=== PATIENT | female | born 1995 | race Caucasian/White ===

== ENCOUNTER 2022-02-13 09:32 | Outpatient (CLI) | payer OTHER, SELFPAY ==
[2022-02-13 11:32] LABS: Albumin* 4.3 g/dL (3.3-5.0)
[2022-02-13 11:35] LABS: Alanine Aminotransferase* 23 U/L (4-35); Alkaline Phosphatase* 82 U/L (40-150); Aspartate Amino Transferase* 25 U/L (12-35); Bilirubin Direct* 0.3 mg/dL (0.0-0.5); Bilirubin Total* 0.4 mg/dL (0.1-1.5); Total Protein* 6.9 g/dL (6.0-8.3)
== END 2022-02-13 09:33 | disposition home or self-care (01) ==
PROVIDERS: Visit Provider Physician Assistant
DX: O26.612 Liver and biliary tract disorders in pregnancy, second trimester (principal); K80.20 Calculus of gallbladder without cholecystitis without obstruction; R74.8 Abnormal levels of other serum enzymes; Z3A.13 13 weeks gestation of pregnancy
CPT/HCPCS: 80076; 87086; 87186

== ENCOUNTER 2022-03-10 11:15 | Outpatient (CLI) | payer OTHER, SELFPAY | END 2022-03-10 11:16 | disposition home or self-care (01) | LOC: NFLDREF 11:15 | PROVIDERS: Visit Provider Obstetrics & Gynecology | DX: Z34.90 Encounter for supervision of normal pregnancy, unspecified, unspecified trimester (principal) | CPT/HCPCS: 87086 ==

== ENCOUNTER 2022-04-04 10:00 | Inpatient (IN) | payer OTHER, SELFPAY ==
[2022-04-04] VITALS (14 sets, daily range): BP systolic 105–121; BP diastolic 67–83; PULSE 70–98; RESP 16; TEMP 36.6–37.7; O2SAT 97–99; BMI 27.2; BMI 26.5
--- NOTE | 2022-04-04 09:37 | CRLHL7_ITS ---
For Patients: As a result of the Century Cures Act, medical imaging exams and procedure reports are released immediately into your electronic medical record. You may view this report before your referring provider. If you have questions, please contact your health care provider. INDICATION: No heart tones. TECHNIQUE: Ultrasound OB pelvis transabdominal. Real-time goyal-scale imaging of the fetus was performed. COMPARISON: None. FINDINGS: No heart tones. Hydrops fetalis with generalized body edema possible cystic hygroma. Fetus has a cephalic orientation. Placenta position is anterior. The following biometric measurements were obtained: Biparietal diameter: 3.1 cm, 15 week 5 day, less than 3rd percentile. Head circumference: 11.6 cm, 15 week 5 day, less than 3rd percentile. Abdominal circumference: 10.5 cm, 16 weeks 3 day, less than 3rd percentile. Femur length: 2.0 cm, 15 week 6 day, less than 3rd percentile. The composite ultrasound gestational age is calculated at 16 week 0 day with an estimated sonographic due date of 09/19/2022. The weight is estimated at 145 grams, the less than 3rd percentile. IMPRESSION.: 1. demise with no detectable heart tones. 2. Hydrops fetalis. Dr. Solorzano was given preliminary report prior to dictation. Dictated by Stefan Dunne MD @ 04/04/2022 10:48:37 AM (Electronically Signed)
--- NOTE | 2022-04-04 10:10 | SUR.PREOP ---
OB RN Lesli in room for Heart Tones. Unable to assess FHR. Dr. Courtney notified and at bedside for bedside ultrasound. No Heart Tones per Dr. Courtney. Ultrasound called for confirmation ultrasound. Patient moved to OB Room 206. aware and Lap Mony procedure cancelled.
--- NOTE | 2022-04-04 11:11 | P.OBHP_ITS ---
OB - H&P: HPI Labor/Induction History of Present Illness Time Seen by Provider: 11:15 Date Seen: 04/04/22 Chief Complaint: HPI: Kandi is a 27 year old 1 para 0 at 20 and 0/7 weeks gestation by LMP of 11/14/2021 with an SIMONA of 08/21/2022 which was consistent with her first- trimester ultrasound performed at 8 weeks gestation. She presented to the surgery center this morning for a scheduled laparoscopic cholecystectomy for cholelithiasis in . cardiac activity could not be auscultated on Doppler so a bedside ultrasound was performed which showed an intrauterine demise. The patient's surgery was canceled and she was transferred to the center. An official ultrasound was performed with findings stated below: Measuring 16 weeks. I reviewed options for management of 2nd trimester demise with the patient and her spouse, Wilver: Induction of labor versus dilation and evacuation. After discussing options with the patient and her spouse they decided that they would prefer induction of labor. Kandi states she thinks that she felt a little bit of movement but nothing regular. She denies contractions, vaginal bleeding, vaginal discharge, leaking fluid, fever, nausea/vomiting. She has had abdominal pain associated with gallstones. OBSTETRICAL HISTORY: Total number of pregnancies: 0. Contraception being uses during time of conception: None. Last menstrual period normal: Yes. Usual length of cycle: 31 day. Treatment for infertility: No. LMP: 11/14/2021. Last pap: April 2021, records requested. History of abnormal pap: No. History of STI or PID: Denies. History of MRSA: Denies. MEDICAL HISTORY: Cholelithiasis Fatty liver Asthma IMMUNIZATIONS: Up-to-date. History of chicken pox: Yes. SURGICAL HISTORY: Appendectomy 2010 History of blood transfusion: No SOCIAL HISTORY: Occupation: Unemployed. Marital status: . Sabianist/cultural needs: no. Chemical or radiation exposure: no. Pre- tobacco use: no. Pre- alcohol use: no. Current tobacco use: no. Current alcohol use: no. Recreational drug use: no. . Blood transfusion acceptable in an emergency: yes . FAMILY AND GENETIC HISTORY: Family history of neurofibromatosis (sister of father of the baby) Family history of Stickler syndrome (patient's brother) No history recurrent loss or defects PSYCHOSOCIAL HISTORY: History of depression or currently depresses: no. Current physical, emotional, or sexual mistreatment: no. Problems that will make it hard to make it to appointments: no. REVIEW OF SYSTEMS: Positives noted above. Remainder of 10 point review of system is negative Chief complaint: Maternity : 1 Para: 0 Narrative: HPI: Kandi Barnett is a 27 year old female OBSTETRICAL HISTORY: Total number of pregnancies: 0. Meds Home Medications and Allergies Home Medications Medication Instructions Recorded Confirmed Type albuterol sulfate 90 mcg/actuation inhalation PRN 02/13/22 04/02/22 History aerosol inhaler docosahexaenoic acid 200 mg mg PO 02/13/22 04/02/22 History capsule ( DHA) aspirin 81 mg tablet,delayed 81 mg PO QDAY 02/24/22 04/04/22 History release Allergies Allergy/AdvReac Type Severity Reaction Status Date / Time No Known Allergies Allergy Unverified 04/02/22 13:09 OB - H&P: Exam Physical Exam: Vital signs: Temp Pulse Resp BP Pulse Ox O2 Del Method 97.8 F 83 16 113/68 99 04/04/22 09:28 04/04/22 09:28 04/04/22 09:28 04/04/22 09:28 04/04/22 09:28 04/04/22 09:28 Narrative: GENERAL APPEARANCE: Pleasant, , well-groomed woman in no acute dist ress. VITAL SIGNS: as noted in nursing notes THYROID: no masses, nodularity, tenderness or enlargement. LUNGS: Clear to auscultation bilaterally without wheezes, rales or rhonchi. HEART: Regular rate and rhythm with normal S1 and S2. No gallop, rub or murmur. LYMPHATICS: No anterior/posterior cervical, supraclavicular adenopathy. ABDOMEN: Soft, nontender, nondistended, with normal bowels sounds throughout. No hepto-splenomegaly, mass, hernia, CVA or flank tenderness to palpation. EXTREMITIES: No cyanosis, clubbing, or edema. No varicosities. NEUROLOGIC: Normal gait and balance. Normal deep tendon reflexes at bilateral patella 2+/2, equal without clonus. PSYCHIATRIC: alert and oriented x3. Normal speech pattern, eye contact and affect. SKIN: Warm, dry, and well perfused. Good turgor. No lesions, nodules or rashes. OB - Problem Based A/P Additional Plan (1) demise before 22 weeks with retention of fetus: Problem details: 20weeks by dates, 16 weeks by USN Status: Acute Plan 1. Admit to the center. 2. Labor induction with Cytotec 200 mg vaginally every 4 hours. 3. Analgesia for pain as desired she. 4. Multiple laboratory tests ordered due to 2nd trimester demise: Torch titers, listeria, autoimmune disorder testing, hypercoagulability evaluation, glucose, KB, TSH and free T4. Cytogenetics of the placenta will be ordered after delivery. Chromosome studies in the patient were ordered. 5. Iris notified for patient's support and resources for patients who have had loss. 6. Rh negative, will need RhoGAM after delivery
[2022-04-04] MEDS: ACETAMINOPHEN 500 MG TABLET 1000 MG PO ×3 (11:38→23:15)
[2022-04-04] MEDS: miSOPROStoL 200 MCG TABLET VAGINAL ×4 (11:39→23:41)
[2022-04-04] MEDS: LOPERAMIDE HCL 2 MG CAPSULE 4 MG PO (11:39)
[2022-04-04 14:59] LABS: Basophils Percent Auto 0.2 % (0.0-3.0); Eosinophils Percent Auto 0.3 % (0.0-7.0); Hematocrit 38.6 % (33.0-51.0); Hemoglobin* 13.3 gm/dL (12.0-16.0); Immature Granulocytes Abs Auto 0.16 K/uL (0.00-0.30); Lymphocytes Percent Auto 14.5 % (20-44); Mean Corpuscular HGB Conc 35 gm/dL (32-36); Mean Corpuscular Hemoglobin 30 pg (26-34); Mean Corpuscular Volume 86 fL (80-100); Monocytes Percent Auto 3.9 % (0.0-11.0); Neutrophils Percent Auto 79.9 % (42.0-72.0); Platelet Count* 301 K/uL (140-440); RDW Coefficient of Variation % 12.8 % (11.5-15.5); Red Blood Count 4.47 m/uL (4.00-5.20); White Blood Count* 13.07 K/uL (4.50-11.00)
[2022-04-04 15:00] LABS: Amphetamine Screen Urine Negative (Negative); Benzodiazepines Screen Urine Negative (Negative); Cannabinoid Screen Urine Negative (Negative); Cocaine Screen Urine Negative (Negative); Methadone Screen Urine Negative (Negative); Methamphetamines Screen Urine Negative (Negative); Opiate Screen Urine Negative (Negative); Phencyclidine Screen Urine Negative (Negative); Tricyclic Antidepressant Urine Negative (Negative)
[2022-04-04 15:01] LABS: Barbiturate Screen Urine Negative (Negative); Oxycodone Screen Urine Negative (Negative)
[2022-04-04 15:12] LABS: Slide Review Reflex No
[2022-04-04 15:13] LABS: Glucose* 133 mg/dL (60-115)
[2022-04-04 15:31] LABS: Free T4 Free Thyroxine* 1.02 ng/dL (0.70-1.85)
[2022-04-04 15:51] LABS: INR 0.99 (0.91-1.10); Prothrombin Time 13.5 Seconds
[2022-04-04 15:52] LABS: Fibrinogen* 492 mg/dL (200-450); Partial Thromboplastin Time* 30 Seconds (23-33)
[2022-04-04] MEDS: LOPERAMIDE HCL 2 MG CAPSULE PO (19:46)
[2022-04-05] VITALS (26 sets, daily range): BP systolic 107–125; BP diastolic 68–78; PULSE 72–113; RESP 16–18; TEMP 36.8–37.6
[2022-04-05] MEDS: miSOPROStoL 200 MCG TABLET VAGINAL (03:44)
[2022-04-05] MEDS: ACETAMINOPHEN 500 MG TABLET 1000 MG PO ×2 (05:21→12:39)
[2022-04-05] MEDS: SODIUM CHLORIDE 0.9 % (FLUSH) 10 ML SYRINGE IVF ×3 (09:24→11:30)
[2022-04-05] MEDS: miSOPROStoL 200 MCG TABLET 400 MCG VAGINAL (09:24)
[2022-04-05] MEDS: LOPERAMIDE HCL 2 MG CAPSULE PO (09:34)
--- NOTE | 2022-04-05 09:48 | PM.OBPNL ---
Pain Control Date Seen: 04/05/22 Comments: The patient feels generally well. She has had some mild low abdominal cramping that seems to come and go. She denies any vaginal bleeding. She is teary-eyed this morning. Her parents and in-laws will be visiting to provide support sometime this morning. Contractions Monitor mode: None Pelvic Exam Comments: Exam deferred. Assessment and Plan Assessment: induction ongoing Comments: Will increase the dosage of misoprostol to 400 mcg PV every 4 hours. The patient and I discussed the plan. We reviewed the possibility that surgical intervention could be necessary for retained placenta or hemorrhage, but we will try to avoid surgery unless necessary. She can have medications for pain control as needed.
[2022-04-05] MEDS: fentaNYL 100 MCG/2 ML inj IVP ×2 (10:52→11:30)
[2022-04-05] MEDS: METHYLERGONOVINE MALEATE 0.2 MG/ML INJ IM (11:42)
[2022-04-05] MEDS: ONDANSETRON 2 MG/ML inj 4 MG IV (12:16)
[2022-04-05] MEDS: miSOPROStoL 800 MCG/4 TABLET PR (12:26)
--- NOTE | 2022-04-05 13:23 | P.OBPRC_ITS ---
Procedure Delivery date: 04/05/22 Procedure Done: Global Procedure Details: Procedures Operation Date: 04/04/22 10:30 <No data on this case meets the specified criteria> Events: Other ( demise diagnosed at 20 2/7 weeks, size by ultrasound = 16 0/7 weeks, with hydrops) Intrapartal Events: Labor Induction Induction method: per misoprostol protocol (Initially 200 mcg orally Q 4 hours, increased to 400 mcg on 04/05/2022) Delivery monitor: none Route of delivery: Laceration description: None Estimated blood loss (mL): 50 Anesthesia type: Fentanyl Disposition: floor Narrative: The patient is a 27 year-old G 1 P 0 admitted on 9 to [facility] at 20 Weeks, 2 Days gestation for labor induction following diagnosis of intrauterine demise.? size by ultrasound at the time the demise was diagnosed was 16 weeks. Fetus was noted to be hydropic. Cervical exam on admission was long and closed with membranes intact.? Induction was initiated via misoprostol per protocol, 200 mcg q.4 hours. After 5 doses, the dosage was increased to 400 mcg. ? Labor Analgesia:? Fentanyl ? Labor onset:? 1045 on 04/05/2022 ? The patient had a small gush of fluid from the vagina while using the bathroom at 11:22 a.m.. ? At 1137 a nonviable viable delivered spontaneously. Methergine 0.2 mg was administered intramuscularly just after the delivery. Misoprostol 800 mcg was administered rectally at about 12 30. ? Placenta delivered spontaneously and complete at 1300. ? Mother was stable after delivery. ? Blood loss: [50] mL. Blood loss measurement type: [QBL] ? Sponge and needles counts are correct. Infant Infant Gender: Ambiguous
[2022-04-07 00:05] LABS: Toxoplasma gondii Ab, IgG < 3.0 IU/mL; Toxoplasma gondii Ab, IgM < 3.0 AU/mL (<=7.9)
[2022-04-07 00:11] LABS: CMV Antibody IgG < 0.20 U/mL; CMV Antibody IgM < 8.0 AU/mL (<=29.9)
[2022-04-07 01:06] LABS: B2Glycoprotein 1, IgG Antibody < 10 SGU (<=20); B2Glycoprotein 1, IgM Antibody < 10 SMU (<=20)
[2022-04-07 01:14] LABS: Rapid Plasma Reagin (RPR) Non Reactive (Non Reactive)
[2022-04-07 01:16] LABS: Cardiolipin Antibody IgA < 10 APL (<=11); Cardiolipin Antibody IgG < 10 GPL (<=14); Cardiolipin Antibody IgM < 10 MPL (<=12)
[2022-04-07 22:03] LABS: Parvovirus B19 Antibody IgG 0.36 IV (<=0.90); Parvovirus B19 Antibody IgM 0.17 IV (<=0.90)
[2022-04-11 12:37] LABS: FACV Specimen Whole Blood; Factor V Leiden (F5) Mutation Negative
== END 2022-04-05 19:30 | disposition home or self-care (01) | DRG 807 ==
LOC: OB 10:07
PROVIDERS: Obstetrics & Gynecology; Admitting Provider Obstetrics & Gynecology; Visit Provider Obstetrics & Gynecology
DX: O36.4XX0 Maternal care for intrauterine death, not applicable or unspecified (principal); Z37.1 Single stillbirth; Z3A.20 20 weeks gestation of pregnancy
CPT/HCPCS: 36415; 76815; 80306; 81241; 82947; 84439; 84443; 85025; 85384; 85460; 85461; 85610; 85613; 85730; 86146; 86147; 86317; 86592; 86644; 86645; 86747; 86778; 86850; 86900; 86901; 87070; 87186; 88233; 88262; 88305; A9270; J1200; J2210; J2405; J2791; J3010

== ENCOUNTER 2022-05-13 06:03 | Day surgery (SDC) | payer OTHER, SELFPAY ==
[2022-05-13] VITALS (16 sets, daily range): BP systolic 109–122; BP diastolic 76–90; PULSE 68–110; RESP 16; TEMP 36.2–37.1; O2SAT 96–98; BMI 27.7
[2022-05-13 06:30] LABS: Ur HCG Qualitative* Negative (Negative)
[2022-05-13] MEDS: SODIUM CHLORIDE 0.9 % (FLUSH) 10 ML SYRINGE IVF (06:35)
[2022-05-13] MEDS: LACTATED RINGERS 1000 ML 1,000 ML 100 ML IV ×2 (06:35→09:54)
[2022-05-13] MEDS: CEFAZOLIN 1 GM inj IVP (07:32)
[2022-05-13] MEDS: BUPIVACAINE 0.5% 30 ML INJECTION (08:58)
--- NOTE | 2022-05-13 09:11 | PM.GSPRC ---
Operative Note Date of procedure: 05/13/22 Type of Procedure: Laparoscopic cholecystectomy Procedure Description: After discussing the risks and benefits of the procedure, the patient signed informed consent.? The operative site was marked and the patient was brought to the operating room and placed on the operating table in supine position.? Care was taken to pad the patient's pressure points.?? The patient was then intubated by anesthesia.?? The operative site was then prepped and draped in the usual sterile fashion.? A time-out was then performed. Entrance to the abdomen was gained via a 5 mm Visiport in the left upper quadrant. The abdomen was insufflated and briefly surveyed for signs of injury. There was none. 11 mm umbilical port was placed as well as 2 working ports along the right costal margin. Patient was then placed in reverse Trendelenburg position with the right side up. The gallbladder fundus was grasped and retracted cephalad. The infundibulum was grasped. A combination of hook cautery and blunt dissection was used to carefully dissect out the cystic duct and artery until they could clearly be seen entering the gallbladder without any intervening structures. The gallbladder was dissected off the cystic plate to achieve the critical view. Once this was achieved the cystic duct and artery were each clipped with 2 clips proximally and 1 clip distally and transected with the scissors. The gallbladder was then taken off of the liver bed. And removed from the abdomen using an Endo-Catch bag. The gallbladder bed was surveyed for hemostasis. The ports were then removed under direct vision. The umbilical port fascia was closed with 0 Vicryl. The skin was closed with absorbable subcuticular suture. Instrument sponge and needle counts were correct at the end of the case. The patient was then woken and transferred to the PACU in stable condition. ? Sterile dressings were then applied. ? The patient was then woken and transported to the recovery area in stable condition. ? The patient tolerated the procedure well. Findings: Cholelithiasis Anesthesia: GETA Surgeon: Irene Solorzano MD Estimated blood loss (mL): 5 Disposition: same day
--- NOTE | 2022-05-13 09:19 | W.ANESCHARGE ---
Anesthesia Charges Start Date/Time Anesthesia Start Date: 05/13/22 Anesthesia Start Time: 07:29 Stop Date/Time Anesthesia Stop Date: 05/13/22 Anesthesia Stop Time: 09:22 Summary Emergency: No
--- NOTE | 2022-05-13 10:00 | W.ANESCHARGE ---
Anesthesia Charges Start Date/Time Anesthesia Start Date: 05/13/22 Anesthesia Start Time: 07:29 Stop Date/Time Anesthesia Stop Date: 05/13/22 Anesthesia Stop Time: 09:22 Summary Emergency: No
[2022-05-13] MEDS: OXYCODONE 5 MG TABLET PO (10:42)
[2022-05-13] MEDS: ONDANSETRON 2 MG/ML inj 4 MG IVP (11:08)
== END 2022-05-13 12:21 | disposition home or self-care (01) ==
PROVIDERS: Visit Provider Surgery
PROC: 0FT44ZZ Resection of Gallbladder, Percutaneous Endoscopic Approach (ICD-10-PCS; CPT 47562; principal; 2022-05-13 07:30)
DX: K80.10 Calculus of gallbladder with chronic cholecystitis without obstruction (principal)
CPT/HCPCS: 47562; 00790; 81025; 88304; A9270; J0330; J0690; J1100; J1885; J2250; J2370; J2405; J2710; J3010; J3490; J7120

== ENCOUNTER 2022-08-19 14:55 | Outpatient (CLI) | payer OTHER, SELFPAY ==
--- NOTE | 2022-08-19 15:00 | CRLHL7_ITS ---
For Patients: As a result of the Cures Act, medical imaging exams and procedure reports are released immediately into your electronic medical record. You may view this report before your referring provider. If you have questions, please contact your health care provider. INDICATION: Evaluate size and dates TECHNIQUE: Ultrasound OB pelvis transvaginal. Real time goyal scale imaging of the pelvis was performed. COMPARISON: None FINDINGS: Sonographic imaging demonstrates a single living intrauterine gestation. The embryo demonstrates a regular cardiac rate measuring a 79 beats per minute. The embryo`s crown rump length measurement of 2.2 cm corresponds to a gestational age of 8 weeks 6 days with a sonographic due date of . There is a normal appearing yolk sac. There are no gross abnormalities noted within the embryo at this early state of development. The placenta has not yet developed. The gestational sac has a normal appearance. 0.4 centimeter x 1.0 centimeter x 0.3 centimeter subchorionic hemorrhage. The amount of fluid within the sac appears appropriate for gestational age. The cervix is closed. The myometrium appears normal. The ovaries are of normal size. 1.7 centimeter complex left ovarian cyst there are no suspicious fluid collections noted in the cul-de-sac. IMPRESSION: Viable intrauterine . Gestational age calculated at 8 weeks 6 days with a sonographic due date of . Exam is consistent with dates. 0.4 centimeter x 1.0 centimeter x 0.3 centimeter subchorionic hemorrhage. 1.7 centimeter complex left ovarian cyst. Dictated by Tyrone Nevarez MD @ 08/19/2022 8:27:48 PM (Electronically Signed)
== END 2022-08-19 14:56 | disposition home or self-care (01) ==
LOC: US 14:55
PROVIDERS: Visit Provider Registered Nurse
DX: Z34.91 Encounter for supervision of normal pregnancy, unspecified, first trimester (principal); Z3A.09 9 weeks gestation of pregnancy
CPT/HCPCS: 76817

== ENCOUNTER 2022-08-19 16:35 | Outpatient (CLI) | payer OTHER, SELFPAY ==
[2022-08-19 21:00] LABS: Hepatitis B Surface Antigen* Negative (Negative)
[2022-08-19 21:12] LABS: HIV 1/2/P24 Combo Screen* Negative (Negative)
[2022-08-19 21:18] LABS: Hepatitis C Virus Antibody* Negative (Negative)
[2022-08-19 22:16] LABS: Chlamydia DNA Amplified* NOT DETECTED (No Detected); GC DNA Amplified* NOT DETECTED (No Detected)
[2022-08-21 23:05] LABS: Varicella-Zoster Virus Ab, IgG 691.4 IV
[2022-08-21 23:10] LABS: Rubella Antibody IgG 17.1 IU/mL
[2022-08-22 01:42] LABS: Rapid Plasma Reagin (RPR) Non Reactive (Non Reactive)
== END 2022-08-19 16:36 | disposition home or self-care (01) ==
PROVIDERS: Visit Provider Registered Nurse
DX: Z34.91 Encounter for supervision of normal pregnancy, unspecified, first trimester (principal); Z3A.09 9 weeks gestation of pregnancy
CPT/HCPCS: 86592; 86703; 86762; 86787; 86803; 86850; 86900; 86901; 87086; 87340; 87491; 87591

== ENCOUNTER 2022-11-04 14:58 | Outpatient (CLI) | payer OTHER, SELFPAY ==
--- NOTE | 2022-11-04 15:00 | CRLHL7_ITS ---
For Patients: As a result of the Century Cures Act, medical imaging exams and procedure reports are released immediately into your electronic medical record. You may view this report before your referring provider. If you have questions, please contact your health care provider. INDICATION: Evaluate anatomy. COMPARISON: 08/19/2022 TECHNIQUE: Real time goyal scale imaging of the fetus was performed as well as color Doppler analysis of the umbilical vessels. FINDINGS: Sonographic imaging demonstrates a single living intrauterine gestation. Fetus demonstrates a regular cardiac rate of 159 beats per minute. Fetus has a variable position. The placenta lies posteriorly without evidence of placenta previa. The edge of the placenta is located 5.4 cm from the internal cervical os. Amniotic fluid volume appears normal. Single deepest vertical pocket: 4.5 cm. The cervix is closed and measures 3.8 cm in length. The composite ultrasound gestational age is calculated at 20 weeks 0 days with an estimated sonographic due date of 03/24/2023. The estimated weight is 315 grams which lies at the 28th %. The following biometric measurements were obtained: Biparietal diameter: 4.4 cm/19 weeks 3 days 20th% Head circumference: 16.9 cm/19 weeks 4 days 16th% Abdominal circumference: 14.8 cm/20 weeks 1 day 42nd% Femur length: 3.1 cm/19 weeks 4 days 25th% The HC/AC ratio measures: 1.14 range (1.08-1.25) On anatomic survey, there is a normal appearance of the cerebral ventricles, cavum septi pellucidi, cisterna magna and cerebellum. The nose, lips, and facial profile appear normal. The cervical, thoracic and lumbar spine are well visualized and appear normal. There is a normal four-chamber heart view and the left and right ventricular outflow tracts appear normal. The diaphragm and stomach appear normal. The kidneys and bladder also appear normal. There is a normal three-vessel cord and cord insertion site. The four extremities appear normal. IMPRESSION: Normal OB ultrasound exam with concordance of clinical and sonographic dating. No intrinsic abnormalities noted on anatomic survey. Dictated by Tyrone Calderon MD @ 11/05/2022 9:41:12 AM (Electronically Signed)
== END 2022-11-04 14:59 | disposition home or self-care (01) ==
LOC: US 14:58
PROVIDERS: Visit Provider Obstetrics & Gynecology
DX: Z34.92 Encounter for supervision of normal pregnancy, unspecified, second trimester (principal); Z3A.20 20 weeks gestation of pregnancy
CPT/HCPCS: 76805

== ENCOUNTER 2023-01-13 15:53 | Outpatient (CLI) | payer OTHER, SELFPAY ==
--- NOTE | 2023-01-13 16:00 | CRLHL7_ITS ---
For Patients: As a result of the Century Cures Act, medical imaging exams and procedure reports are released immediately into your electronic medical record. You may view this report before your referring provider. If you have questions, please contact your health care provider. INDICATION: + COVID in early COMPARISON: 11/04/2022 TECHNIQUE: Real time goyal scale imaging of the fetus was performed. FINDINGS: Sonographic imaging demonstrates a single living intrauterine gestation. Fetus demonstrates a regular cardiac rate of 165 beats per minute. Fetus has a vertex position. The placenta lies posterior. Amniotic fluid volume appears normal and there is a single deepest vertical pocket: 5.6 cm. The estimated weight is 1687gm which lies at the 69th %. On the prior OB ultrasound exam dated 11/04/2022 the estimated weight was at the 28th%. The HC/AC ratio measures 1.04 range (0.96-1.17). BPD 37th percentile. HC 54th percentile. AC 86th percentile. FL 32nd percentile. IMPRESSION: Sonographic gestational age 30 weeks 6 days and sonographic due date 03/18/2023. Sonographic age 5 days ahead of the clinical age. Estimated weight 69th percentile. Abdominal circumference 86th percentile. Dictated by Tyrone Calderon MD @ 01/14/2023 9:14:34 AM (Electronically Signed)
== END 2023-01-13 15:54 | disposition home or self-care (01) ==
LOC: US 15:54
PROVIDERS: Visit Provider Registered Nurse
DX: O98.513 Other viral diseases complicating pregnancy, third trimester (principal); U07.1 COVID-19; Z3A.30 30 weeks gestation of pregnancy
CPT/HCPCS: 76816

== ENCOUNTER 2023-01-27 17:36 | Outpatient (CLI) | payer OTHER, SELFPAY | END 2023-01-27 17:37 | disposition home or self-care (01) | LOC: NFLDREF 17:37 | PROVIDERS: Visit Provider Registered Nurse | DX: Z34.93 Encounter for supervision of normal pregnancy, unspecified, third trimester (principal); Z3A.32 32 weeks gestation of pregnancy | CPT/HCPCS: 87086 ==

== ENCOUNTER 2023-02-24 13:15 | Outpatient (CLI) | payer OTHER, SELFPAY | END 2023-02-24 13:16 | disposition home or self-care (01) | LOC: NFLDREF 02-26 07:33 | PROVIDERS: Visit Provider Obstetrics & Gynecology | DX: Z34.93 Encounter for supervision of normal pregnancy, unspecified, third trimester (principal); Z3A.36 36 weeks gestation of pregnancy | CPT/HCPCS: 87081; 87653 ==

== ENCOUNTER 2023-03-22 15:40 | Inpatient (IN) | payer OTHER, SELFPAY ==
[2023-03-22] VITALS (63 sets, daily range): BP systolic 84–138; BP diastolic 50–89; PULSE 71–118; RESP 16; TEMP 37–37.2; O2SAT 98–100; BMI 34.2
--- NOTE | 2023-03-22 15:50 | P.OBHP_ITS ---
OB - H&P: HPI Labor/Induction History of Present Illness Time Seen by Provider: 15:50 Date Seen: 03/22/23 Chief Complaint: This is a 28-year-old female 2 para 0010 who presents at 39 and 6 7th weeks by last menstrual. A 9 week ultrasound complaint of uterine contractions which started at 2:00 a.m. this morning and then every 2 minutes. Patient denies any rupture of membranes. No bloody show. Positive movement. Patient states she has had an unremarkable course. She had an abnormal 1 hour GTT but had a normal 3 hour GTT. GBS is negative Past medical history: Mild intermittent asthma. Past surgical history: Appendectomy and cho lecystectomy. Medicines: Celexa 20 mg. Allergies: None. Social history: No smoke rare ETOH and no drug use. 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 Chief complaint: PAT Appointment : 2 Para: 10 Narrative: Kandi Barnett is a 28 year old female Specific Issues/Plans 010 : Wilver Sands. H/o stillbirth at 20 weeks (measuring 16 weeks) on 04-03-22. Monosomy X/Fisher's syndrome and cystic hygroma. MaterniT 21: negative (sex linked aneuploidy not done, we are contacting the [facility] to see if it can be added) -I talked with the piper helper from the [facility] and she was able to give me a verbal report, no additional findings for sex linked aneuploidy. This will not be reflected in her report. Patient is comfortable with this information. I talked to Kaila at [phone] Encouraged patient to schedule additional office visits as she desires 2. Anxiety. Citalopram 10mg. Doing relatively well at first OB visit. Feeling cautious about the . Increased anxiety. On 09/16/2022 increased citalopram to 20 mg 3. SHREE: 0.4 x 1.0 x 0.3 cm. 1.7 centimeter complex left ovarian cyst. 4. Family history of neurofibromatosis and stickler syndrome. Considering genetics referral. 5. History of covid infection in early . Growth u/s at 32 weeks: Performed 30 weeks: EFW: 69% periods BPD 37%, HC 54%, AC 86%, FL 32%. Vertex position. S DP 5.6 cm. 6. Mild intermittent BA -Albuterol inhaler PRN O NEGATIVE: rhogam: 12-30-22 Flu: 08/19/2022 COVID: Completed, not boosted. Recommended. TDAP: 01/13/23 Meds Home Medications and Allergies Home Medications Medication Instructions Recorded Confirmed Type albuterol sulfate 90 mcg/actuation 1 inh inhalation Q6H PRN 05/12/22 03/22/23 History aerosol inhaler prenat.vits,morales,[id number] 1 tab PO QDAY 08/19/22 03/22/23 History Allergies Allergy/AdvReac Type Severity Reaction Status Date / Time cat dander Allergy Mild itching, Verified 03/18/23 08:53 watery eyes dog dander Allergy Mild itching, Verified 03/18/23 08:53 watery eyes seasonal Allergy Mild SOB, runny Uncoded 03/18/23 08:53 nose OB - H&P: Exam Physical Exam: Vital signs: Temp Pulse Resp BP Pulse Ox 99 F 87 16 132/89 98 03/22/23 15:36 03/22/23 15:35 03/22/23 15:36 03/22/23 15:35 03/22/23 11:39 Narrative: HEENT: Unremarkable. Lungs: Clear Heart: Positive S1-S2 no S3 or S4 Abdomen: Positive bowel sounds. Soft nontender. Lower extremities: No edema. Negative Homans sign. Sterile vaginal exam by the nurse. 5 cm. heart rate. 140. Positive accelerations. No decelerations. Good variability. Uterine contractions every 2-3 minutes. Category 1. OB - Problem Based A/P Additional Plan (1) : Status: Acute Plan Assessment and plan: Term intrauterine . Labor. Patient will be admitted for delivery.
[2023-03-22] MEDS: LACTATED RINGERS 1000 ML 1,000 ML 999 ML IV ×2 (18:37→19:38)
[2023-03-22] MEDS: LIDOCAINE 2% (PF) 5 ML VIAL EPIDURAL (19:31)
[2023-03-22] MEDS: ROPIVACAINE 0.2% 100 ml 100 ML 12 MG EPIDURAL (19:35)
--- NOTE | 2023-03-22 19:45 | P.ANBPRC_ITS ---
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 Social History (Updated 02/24/22 @ 16:17 by Hui Gramajo MD) Narrative: The patient is currently with her 1st child. She does not work outside the home. She does not smoke or use alcohol. What is your current living situation?: I presently have a place to live Problems where you live: no known problems In the past 12 months, utilities in danger of being shut off: no In the past 12 mos, have been you worried that your food would run out before you had money to buy more?: never true In the past 12 mos, the food you bought just didn't last and you didn't have money to buy more?: never true Smoking Status: Never smoker Do you use any of these nicotine containing products: None How often do you have a drink containing alcohol: never How often do you have six or more drinks on one occasion: Never AUDIT-C Alcohol total score: 0 Non-prescribed substance use: denies use Caffeine: Yes (coffee 1per day) How often does anyone, including family, friends and others, physically hurt you : never How often does anyone, including family, friends and others, insult or talk down to you: never How often does anyone, including family, friends and others, threaten you with harm: never How often does anyone, including family, friends and others, scream or curse at you: never Little interest or pleasure in doing things: not at all Feeling down, depressed, or hopeless: not at all Are you using contraception or practicing any form of control: No Meds Home Medications and Allergies Home Medications Medication Instructions Recorded Confirmed Type albuterol sulfate 90 mcg/actuation 1 inh inhalation Q6H PRN 05/12/22 03/22/23 History aerosol inhaler prenat.vits,morales,[id number] 1 tab PO QDAY 08/19/22 03/22/23 History Allergies Allergy/AdvReac Type Severity Reaction Status Date / Time cat dander Allergy Mild itching, Verified 03/18/23 08:53 watery eyes dog dander Allergy Mild itching, Verified 03/18/23 08:53 watery eyes seasonal Allergy Mild SOB, runny Uncoded 03/18/23 08:53 nose Results Vital Signs Vital Signs: Last Vital Signs Temp 99 F 03/22/23 15:36 Pulse 107 H 03/22/23 19:44 Resp 16 03/22/23 15:36 BP 120/71 03/22/23 19:44 Pulse Ox 99 03/22/23 19:40 Weight: 85.003 kg Height: 157.48 cm Anesthesia Procedures Epidural Insertion Patient Location: OB Start Time: 18:50 Stop Time: 19:50 Start Date: 03/22/23 Stop Date: 03/22/23 Reason for Block: procedure for pain Patient Position: sitting Performed By: Valerie Reich Preanesthetic Checklist: IV checked, risks and benefits discussed, monitors and equipment checked, pre-op evaluation, timeout performed and anesthesia consent Prep: chlorhexidine gluconate Monitoring: blood pressure monitoring, continuous pulse oximetry and heart rate Approach: midline Vertebral Space: lumbar (1-5) Epidural Technique: LEILANI saline Needle Type: Tuohy needle Injection Technique: continuous catheter (continuous catheter) Needle gauge: 17 Needle Length (cm): 10 cm Needle Insertion Depth (cm): 6 Catheter Gauge: 19 Catheter Type: multi-orifice Catheter at skin depth (cm): 15 Test Dose Result: negative and lidocaine 1.5% with epinephrine 1 to 200,000
[2023-03-22] MEDS: PHENYLEPHRINE 100 MCG/ML SYRINGE IVP ×2 (20:50→20:54)
[2023-03-22] MEDS: LACTATED RINGERS 1000 ML 1,000 ML 525 ML IV (21:03)
[2023-03-22] MEDS: LACTATED RINGERS 1000 ML 1,000 ML 925 ML IV (22:11)
[2023-03-22] MEDS: LACTATED RINGERS 1000 ML 1,000 ML 125 ML IV (23:16)
[2023-03-22] MEDS: OXYTOCIN 30 unit/500 ML in NS 30 UNIT/500 ML BAG IVPB (23:38)
[2023-03-23] VITALS (30 sets, daily range): BP systolic 93–135; BP diastolic 55–80; PULSE 88–130; RESP 16–18; TEMP 36.7–37.6; O2SAT 96–97
[2023-03-23] MEDS: ROPIVACAINE 0.2% 100 ml 100 ML 12 MG EPIDURAL (02:38)
[2023-03-23] MEDS: ONDANSETRON 2 MG/ML inj 4 MG IV (02:49)
[2023-03-23] MEDS: CEFAZOLIN 2 GM INJ IVP (04:34)
--- NOTE | 2023-03-23 04:36 | W.PM.OBVAGDE ---
OB Procedure Vag Delivery Mother Details Mother Details: The patient is a 28 year-old, 2, Para 1, admitted on 03/22/23 at 38 6/7 weeks gestation, in labor for delivery. Patient progressed well, epidural in place, afterwards contractions started to space out. AROM with meconium stained amniotic fluid and oxytocin started after discussion of labor progression with patient and she agreed. : 2 Para: 1 Weeks Gestation: 40 Admission Date: 03/22/23 Additional Details Amniotic Membrane Status: AROM Amniotic Membrane Rupture Date: 03/22/23 Amniotic Membrane Rupture Time: 22:21 Amniotic Membrane Fluid Description: Meconium Stained Analgesia/Anesthesia Type: Epidural Waterbirth: No Pitcoin: Yes Intrapartal Events: Labor Augmentation and Mod/Heavy Meconium Fluid Delivery augmentation: rupture of membranes and pitocin Labor Onset: 09:00 (03/22/23) Complete: 02:16 Pushin:55 Heart: heart tones during second stage were category 2. Deep variables while . Delivery Details Delivery Date: 03/23/23 Delivery Time: 03:58 Route of delivery: Infant Gender: Female Infant Viability: Alive; Heart Rate Present Position at Delivery: OA Delivery Details: Delivered over intact perineum via spontaneous vaginal delivery. was placed on maternal abdomen.? Cord was clamped and cut after a 30-60 second delay. Nose and mouth were bulb suctioned.? weight 7 pounds 13 ounces. 1 Minute Interval Total Score: 6 5 Minute Interval Total Score: 8 Additional Details Shoulder Dystocia: No Placenta Delivery Time: 04:01 Placental Delivery Description: Spontaneous Delivery repair: Vicryl Procedure Done: Global Blood Loss: 500 Laceration: Perineal - 3rd Degree (3b) Episiotomy Description: None Blood Loss Measurement Type: QBL (Blood loss associated to bleeding perineal laceration, also large amount of amniotic fluid and urine after delivery, suspect overestimation,will monitor closely.) Bakri Used: No Sponge/Need Count Correct: Yes Cord Vessel Description: 3 Vessels, Nuchal Cord and Delivered through Event Summary Status: Mother and were stable after delivery. Disposition: floor
[2023-03-23] MEDS: IBUPROFEN 600 MG TABLET PO ×2 (06:50→15:19)
[2023-03-23] MEDS: DOCUSATE SODIUM 100 MG CAPSULE PO (08:25)
[2023-03-23] MEDS: ACETAMINOPHEN 500 MG TABLET 1000 MG PO ×3 (11:09→23:21)
[2023-03-24 04:37] VITALS: BP 96/63; PULSE 88; RESP 16; TEMP 36.6
[2023-03-24 07:32] LABS: Hemoglobin* 10.8 gm/dL (12.0-16.0)
--- NOTE | 2023-03-24 07:55 | P.DS_ITS ---
DS: Providers Provider Date Seen: 03/24/23 Date of admission: 03/22/23 15:40 Primary care physician: Not a Local Provider Admitting Clinician: Brandon Trinidad MD Attending Physician on discharge: Brandon Trinidad MD Date of Discharge: 03/24/23 DS: Diagnosis Discharge Diagnosis (1) Lactating mother: Status: Acute (2) care following vaginal delivery: Status: Acute Exam Narrative: Exam Narrative: GENERAL APPEARANCE:? normal affect, alert, no distress? MOOD:? appropriate? CHEST:? clear to auscultation and percussion? HEART:? regular rate and rhythm? ABDOMEN:? soft, non-tender the uterine fundus is 2 cm Below Umbilicus, Midline and is appropriate for the stage of recovery. ? PERINEUM:? mild edema of the perineum, there is a 3b degree that is healing well.? EXTREMITIES:? normal and no edema? Patient has no complaints? No active bleeding?? Doing well? She is requesting discharge home.? Const: Vital Signs, click to edit/add: Vital Signs - 24 hr 03/23/23 08:00 03/23/23 12:06 03/23/23 16:00 Temperature 98.4 F 98.0 F 98.1 F Pulse Rate [Right Pulse Oximeter] 93 89 93 Respiratory Rate 16 16 18 Blood Pressure [Ri ght Arm] 101/67 103/64 107/69 Pulse Oximetry 96 97 96 Oxygen Delivery Me thod Room Air Room Air Room Air 03/23/23 20:55 03/23/23 23:23 03/24/23 04:37 Temperature 98.1 F 98.2 F 97.8 F Pulse Rate [Right Pulse Oximeter] 88 88 88 Respiratory Rate 16 16 16 Blood Pressure [Ri ght Arm] 93/80 95/61 96/63 Pulse Oximetry Oxygen Delivery Me thod Room Air Documenting provider has reviewed patient's vital signs: yes OB - DS: Summary Hospital Course Hospital Course: Patient is a 28year old, G 2 now P 1? admitted on 03/22/23 at 39 Weeks, 6 Days gestation for spontaneous labor.? She had an uncomplicated vaginal delivery.? She delivered a viable female .? She is breast feeding and reports things are well.? the patient has done well.? Her pain is well controlled with current medications.? She has no new complaints.? Vitals have been stable. She has remained afebrile. She is voiding without difficulty. She is passing gas and has not had a bowel movement. She is ambulating and denies any dizziness. She is planning condoms for control.?Encouraged her to wait 12 months before attempting to conceive again.?? Peripartum Data Infant delivery method: Vaginal Laceration description: Perineal - 3rd Degree (3b) Episiotomy description: None complications: none [place] Infant Gender: Female Status at Discharge Functional status at discharge: independent ambulation Overall status at discharge: patient is progressing back to baseline Time Spent with Patient Time attestation: Total time spent providing and/or coordinating discharge services: Discharge Plan Discharge Disposition: Home, Self-Care Date of Admission: 03/22/23 15:40 Attending Provider on Discharge: Barb Norwood Primary Care Provider: Provider,Not a Local Condition: Stable Anticipated Discharge Date/Time: 03/24/23 10:00 Discharge Medications: New docusate sodium 100 mg Capsule 100 mg PO DAILY Qty: 60 0RF Rx Instructions: Take 1-2 tablets daily as needed for constipation. ibuprofen 600 mg Tablet 600 mg PO Q6H PRNQty: 30 0RF Continued citalopram 20 mg tablet 20 mg PO QDAY Qty: 90 2RF prenat.vits,morales,fug-easr-oimdu Tablet 1 tab PO QDAY albuterol sulfate 90 mcg/actuation aerosol powdr breath activated 2 inh inhalation Q4-6H PRN (Reason: shortness of breath or wheezing) Qty: 1 0RF albuterol sulfate 90 mcg/actuation HFA aerosol inhaler 1 inh inhalation Q6H PRN Discharge Orders: Discharge Order (Routine); Ordered 03/24/23 Ordered By: Barb Norwood Additional Instructions: Discharge instructions were reviewed with the patient including signs and symptoms of infection and home going medications.? Lifting Restrictions: 20 pounds for 6? weeks? ?? Do not drive while taking narcotic pain meds.? Off Work or School for 6 weeks.? ?? Symptoms to report to doctor:? -Bleeding that saturates more than one pad per hour? -Passing clots larger than the size of a golf ball? -Pain not relieved by prescribed medication? -Fever above 100.4 degrees Fahrenheit? -A foul vaginal odor? -Difficulty in emotions, mood and functions? -Thoughts of hurting yourself and/or ? -Painful, reddened area in your breast? -Any drainage, redness or tenderness in your IV/epidural site? -Severe headache that doesn't improve after taking medications? -Changes in vision, including temporary loss of vision, blurred vision, and/or light sensitivity? -Upper abdominal pain (usually under ribs on the right side)? -Decrease in urination or painful, frequent urinating? -Chest pain? -Shortness of breath? -Tenderness or pain with redness and/swelling in the calf(s) of your leg? ?? Follow Up in clinic in 2 and 6 weeks.? ?? consultation services are available to all mothers and babies for the first year after delivery.? To make an appointment, please call [phone].? Activity Level: Activity as Tolerated Discharge Diet: Regular Follow Up Appointments: [facility] [Provider Group] Provider,Not a Local [Primary Care Provider] - Forms: MyHealth Info Instructions
[2023-03-24 08:09] VITALS: BP 109/72; PULSE 86; RESP 16; TEMP 37; O2SAT 97
[2023-03-24] MEDS: IBUPROFEN 600 MG TABLET PO ×2 (08:16→15:38)
[2023-03-24] MEDS: DOCUSATE SODIUM 100 MG CAPSULE PO (08:17)
[2023-03-24] MEDS: ACETAMINOPHEN 500 MG TABLET 1000 MG PO (11:08)
[2023-03-24 14:30] VITALS: RESP 16
== END 2023-03-24 16:30 | disposition home or self-care (01) | DRG 768 ==
LOC: OB OUT 15:46 → OB 15:46
PROVIDERS: Obstetrics & Gynecology; Admitting Provider Specialist; Visit Provider Specialist
DX: O99.344 Other mental disorders complicating childbirth (principal); Z37.0 Single live birth; O70.22 Third degree perineal laceration during delivery, IIIb; F41.9 Anxiety disorder, unspecified; Z3A.38 38 weeks gestation of pregnancy; O77.0 Labor and delivery complicated by meconium in amniotic fluid
CPT/HCPCS: 1967; 36415; 85018; 85461; A9270; J0690; J2371; J2405; J2791; J2795; J7120

== ENCOUNTER 2023-03-27 12:53 | Outpatient (CLI) | payer OTHER, SELFPAY ==
--- NOTE | 2023-03-27 17:00 | W.PM.LAC.MC ---
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 Briggs Jaundice: No Reason for Consult Reason for Consult: difficulty latching/using nipple shield, weight gain Past Experience Past Experience: No Current Frequency of Day Feedings: every 2 - 3 hours around the clock Both Breasts: No (mom hasn't nursed since D/C yesterday) Goals: mom would like to pump, is nervous to breastfeed b/c of re-admission Pumping Pumping: Yes (trying to pump with every feeding) Quantity Pumped: 7 - 8 ml the last few attempts Supplementing EMB Supplement: Yes (baby is supplemented with 45 ml EBM/formula with every feeding) Formula Supplement: Yes Baby Elimination Number of Wet Diapers a Day: 6 since D/C on 03/26 Number of BM a Day: 3 since D/C on 03/04, green and seedy Breast/Nipple Condition Breast Information: WNL Engorgement: No Onsite Pre-Feed weight: 3.338 kg Post-Feed weight: 3.37 kg Milk Transferred (mL): 10 Assessments/Interventions Assessments/Interventions: Met with mom and this now 4 day old ex- term AGA baby for consult. Couplet was seen after delivery and mom had damaged nipples so a shield was introduced. Baby was D/C'd on 03/24 but readmitted on 8/23 for weight loss and low BG. In the hospital she was started on formula both by bottle and SNS. She was D/C'd yesterday on 03/26 and mom reports since then POC have just bottle fed formula, baby is now taking 45 ml every 2 - 3 hours. Mom has been pumping with every feeding and has just started to get a little more in the last two sessions (7 and 8 ml total respectively). Mom states she would like to breastfeed, but she's a little scared now b/c of the readmission and not knowing what baby gets at the breast. Breast WNL- symmetrical with rounded lower quadrants, intramammary distance is < 1.5 inches. Nipples are flat but evens with stimulation. The left is scabbing, the right has healed. Baby has gained 3 oz since yesterday and is now 6% below BW. POC deny any caput/cephalohematoma. States she may prefer turning her head to the left, but has equal ROM when moving her extremities. Baby's upper frenulum and palate are WNL. She has a strong suck on a finger and has fairly good lateralization. The lower frenulum may be posterior? POC report the last diaper change did not have any uric acid crystals. Mom wanted to practice nursing without the shield and was able to latch baby but she was so hungry she wouldn't settle to suckle long enough for any colostrum/milk to let down. We worked with the SNS and after about 30 minutes were able to get her to take 22 ml formula. During this time mom reported the latch felt good, she felt a pulling sensation, and was comfortable. Baby's lips were flanged and the latch looked wide. When baby came off it was noticed that she hadn't been on the nipple and mom had a suck blister to the outer edge of the nipple. She was able to latch baby to the right side after starting with a shield then removing it; no SNS was used on this side. Baby nursed for 7 - 10 minutes and transferred 10 ml. Mom reported no pain with the latch on the right. She was measured for a flange size and 17 - 21 mm was suggested, handout given. Plan: 1. As POC are tired and nervous about how much baby is getting when at breast, suggested mom try to nurse TID. Offer both sides and ok to use the nipple shield to start out the feeding, or for the entire feeding if needed. 2. Supplement baby after the nursing sessions if she still seems hungry and obviously at the feedings where mom doesn't nurse. Reviewed average amounts babies need at this age and handout given. POC decided against continuing with SNS. 3. Mom will pump for every feeding except for the three where she nurses. 4. Baby has her f/u with PCP today and I will call on 04/03 to see how things are going. Meds Home Medications and Allergies Home Medications Medication Instructions Recorded Confirmed Type prenat.vits,morales,oyp-bahn-tvbfm 1 tab PO QDAY 08/19/22 04/07/23 History Allergies Allergy/AdvReac Type Severity Reaction Status Date / Time cat dander Allergy Mild itching, Verified 04/07/23 13:15 watery eyes dog dander Allergy Mild itching, Verified 04/07/23 13:15 watery eyes seasonal Allergy Mild SOB, runny Uncoded 04/07/23 13:15 nose
== END 2023-03-27 12:54 | disposition home or self-care (01) ==
LOC: OB LAC 12:54
PROVIDERS: Visit Provider Advanced Practice Midwife
DX: Z39.1 Encounter for care and examination of lactating mother (principal)
CPT/HCPCS: 99211

== ENCOUNTER 2024-09-13 13:00 | Outpatient (CLI) | payer OTHER, SELFPAY | END 2024-09-13 13:01 | disposition home or self-care (01) | LOC: US 13:02 | PROVIDERS: Visit Provider Registered Nurse | DX: Z34.91 Encounter for supervision of normal pregnancy, unspecified, first trimester (principal); O20.9 Hemorrhage in early pregnancy, unspecified; Z3A.08 8 weeks gestation of pregnancy | CPT/HCPCS: 76817 ==

== ENCOUNTER 2024-09-13 14:08 | Outpatient (CLI) | payer OTHER, SELFPAY ==
[2024-09-13 20:26] LABS: Chlamydia DNA Amplified* NOT DETECTED (No Detected); GC DNA Amplified* NOT DETECTED (No Detected)
[2024-09-16 02:53] LABS: HPV Source Cervix; HPV, High Risk by TMA Not Detected
== END 2024-09-13 14:09 | disposition home or self-care (01) ==
PROVIDERS: Visit Provider Registered Nurse
DX: Z34.91 Encounter for supervision of normal pregnancy, unspecified, first trimester (principal); Z3A.08 8 weeks gestation of pregnancy; Z12.4 Encounter for screening for malignant neoplasm of cervix
CPT/HCPCS: 83020; 83021; 85660; 86592; 86703; 86704; 86706; 86762; 86787; 86803; 86850; 86900; 86901; 87086; 87340; 87491; 87591; 87624; 87625; 88141; 88142

== ENCOUNTER 2024-12-02 08:04 | Outpatient (CLI) | payer OTHER, SELFPAY ==
--- NOTE | 2024-12-02 08:15 | CRLHL7_ITS ---
For Patients: As a result of the 21st Century Cures Act, medical imaging exams and procedure reports are released immediately into your electronic medical record. You may view this report before your referring provider. If you have questions, please contact your health care provider. OB ULTRASOUND SURVEY SIMONA by LMP: 04/24/2025. GA: 19 w, 4 d. INDICATION: anatomy survey. TECHNIQUE: Real time grayscale imaging of the fetus was performed. Evaluate anatomy. Transabdominal. position: Multiple positions. Cervix: Visualized. Technique: Transabdominal. Length of closed cervix: 4.2 cm. Placenta/cord: Anterior. Technique: Transabdominal. Placenta tip to internal OS: 5 cm. Umbilical Cord: 3-vessel cord. Placenta insertion: Central. Amniotic Fluid: 4.15 cm SDP (greater than/equal to: 2- less than 8 cm). SURVEY: Observed Structures. Calvarium/Spine: Cerebellum: 2 cm, 20 w 1 d. Cisterna Magna: 5.1 mm. Nuchal Fold: 4 mm. Lateral Ventricle: 6.2 mm. CSP: Yes. Midline Falx: Yes. Choroid Plexus: Yes. Spine: Yes. Abdomen: Stomach: Yes. Abd Cord Insertion: Yes. Urinary Bladder: Yes. Kidneys: Yes. Diaphragm: Yes. Face: Nose/lips: Yes. Orbital view: Yes. Profile: Yes. Limbs: Upper Extremities: Yes. Lower Extremities: Yes. Hands: Yes. Feet: Yes. Vascular: 4-Chamber Heart: Yes. LVOT: Yes. RVOT: Yes. 3VV: Yes. 3VTV: Yes. BPD: 4.2 cm. 18 w, 6 d, 21 percent. HC: 16.7 cm. 19 w, 3 d, 33 percent. AC: 14.6 cm. 19 w, 6 d, 55 percent. FL: 3.1 cm. 19 w, 5 d, 47 percent. FL/AC ratio: 21.41 percent. HC/AC ratio: 1.15. heart rate: 131 bpm. age by this US: 19 w, 4 d. SIMONA by this US: 04/24/2025. EFW: 309 g. Weight: 11 oz. Percentile by SIMONA: 54 percent. IMPRESSION: 1. Concordance of clinical and sonographic dating. 2. Normal anatomic survey. Tyrone Calderon M.D. Diagnostic Radiologist [email or web address] WILMAR/jj jj/Dictated by: Tyrone Calderon MD @ 12/02/2024 10:09:00 AM (Electronically Signed)
== END 2024-12-02 08:05 | disposition home or self-care (01) ==
LOC: US 08:05
PROVIDERS: Visit Provider Advanced Practice Midwife
DX: Z34.92 Encounter for supervision of normal pregnancy, unspecified, second trimester (principal); Z3A.19 19 weeks gestation of pregnancy
CPT/HCPCS: 76805

== ENCOUNTER 2025-02-02 09:01 | Outpatient (CLI) | payer OTHER, SELFPAY | END 2025-02-02 09:02 | disposition home or self-care (01) | LOC: NFLDREF 09:03 | PROVIDERS: Visit Provider Advanced Practice Midwife | DX: Z34.93 Encounter for supervision of normal pregnancy, unspecified, third trimester (principal); Z67.91 Unspecified blood type, Rh negative; Z3A.28 28 weeks gestation of pregnancy | CPT/HCPCS: 86592; 86850; J2791 ==

== ENCOUNTER 2025-03-16 14:36 | Outpatient (CLI) | payer OTHER, SELFPAY | END 2025-03-16 14:37 | disposition home or self-care (01) | LOC: NFLDREF 03-21 17:10 | PROVIDERS: Visit Provider Advanced Practice Midwife | DX: Z34.93 Encounter for supervision of normal pregnancy, unspecified, third trimester (principal); Z3A.34 34 weeks gestation of pregnancy | CPT/HCPCS: 82728 ==

== ENCOUNTER 2025-03-30 15:12 | Outpatient (CLI) | payer OTHER, SELFPAY ==
[2025-03-31 14:12] LABS: Strep B DNA Probe Negative (Negative)
[2025-03-31 14:31] LABS: Strep B Susceptibility Needed? No
== END 2025-03-30 15:13 | disposition home or self-care (01) ==
LOC: NFLDREF 15:12
PROVIDERS: Visit Provider Advanced Practice Midwife
DX: Z34.93 Encounter for supervision of normal pregnancy, unspecified, third trimester (principal); Z3A.36 36 weeks gestation of pregnancy
CPT/HCPCS: 87081; 87653

== ENCOUNTER 2025-04-23 22:59 | Inpatient (IN) | payer OTHER, SELFPAY ==
[2025-04-23 22:19] VITALS: BP 105/72; PULSE 102; RESP 16; TEMP 37
--- NOTE | 2025-04-23 22:52 | W.PM.LDBA ---
Subjective History of Present Illness Date Seen: 04/23/25 Narrative: Patient is being admitted to Labor and Delivery for spontaneous labor. She is a 30 year old at 39 6/7 weeks gestation. Her full history and physical was dictated by Jennifer on 04/06/2025. Please see this for details. She is supported by Wilver. She has had no LOF. Reports good movement. Specific Issues/Plans G 3 P 1011 : Wilver Daughter: Christy It is another girl! H&P completed 04/06/25 by Jennifer CHOWDHURY # History stillbirth at 20 weeks (measuring 16 weeks) on 04-03-22. Monosomy X/Fisher's syndrome and cystic hygroma. Considering NIPT testing. Insurance won't cover so not doing at this time. # Anxiety well managed with citalopram 20mg. # Family history of stickler syndrome and neurofibromatosis. Genetics referral placed; declined after order was placed # Asthma # BMI 31.5 A1C: 5.3 # O-. Partner O+ Rhogam given at 28 weeks # Hx low milk supply-enc hand expression at 36w # Failed 1 hr GT, 155 wanted to do 2 weeks of testing instead of 3 hr Over 2 week had 11% abnormals, 2 additional weeks of testing with overall 14% abnormal. No additional follow-up needed. # Hx of third degree (3b) (2022 delivery) Recommend perineal massage #Anemia at 34 weeks Hgb 10.6, ferritin 5.1 recommended iron supplement US- First tri 09/13/24-1. Single living intrauterine with sonographic gestational age 8 weeks 1 day and sonographic due date 04/24/2025. 2. Anterior subchorionic hemorrhage measures 4.0 x 1.8 x 1.9 cm. Anatomy US: 12/02/24-1. Concordance of clinical and sonographic dating. 2. Normal anatomic survey Flu: Covid: declines Mental Health: 03/02/25 OB - Problem Based A/P Additional Plan (1) Spontaneous onset of labor: Status: Acute Plan ASSESSMENT:?? 30 at 39 6/7 weeks gestation?? complicated by:??Anxiety, on citalopram, asthma, anemia, elevated BMI Labor type: Spontaneous, Active labor?? Category 1 FHR pattern.??? Labor complicated by: none?? GBS negative ?? PLAN:?? 1. Routine intrapartum cares as ordered. Continue with expectant management?? 2. Monitoring per policy, intermittent?? 3. Planning unmedicated . Desires water . Consent signed. Hep C negative. Candidate for analgesia of choice.??? 4. Patient encouraged to reposition and ambulate to promote physiologic labor and .?? 5. Nursing notified patient is on a SSRI 6. Anticipate ? OB Exam Physical Exam Vital signs: Temp Pulse Resp BP 98.6 F 102 H 16 105/72 04/23/25 22:19 04/23/25 22:19 04/23/25 22:19 04/23/25 22:19 Narrative: Vitals Reviewed Constitutional:? Alert and oriented x3 HEENT:? Normocephalic, atraumatic Neck:? Supple Lungs:? Clear to auscultation bilaterally Heart:? Regular rate and rhythm, no murmur, rub or gallop Abdomen:? Soft, nontender, and gravid. Vertex by Cong's, confirmed with US exam. Extremities:? No edema or erythema Cervix: 4 cm/90%/-4 station/vertex verified by US, large BBOW NST: 125 bpm/moderate variability/accelerations present/decelerations absent/contractions q 2-3 min palpating moderating
[2025-04-23 23:41] VITALS: BMI 31.2
[2025-04-24] VITALS (15 sets, daily range): BP systolic 97–119; BP diastolic 57–72; PULSE 75–104; RESP 16–21; TEMP 36.6–37; O2SAT 97
[2025-04-24 00:24] LABS: Hematocrit* 38.6 % (33.0-51.0); Hemoglobin* 12.5 gm/dL (12.0-16.0); Immature Granulocytes Abs Auto 0.10 K/uL (0.00-0.30); Immature Granulocytes Pct Auto 0.8 %; Mean Corpuscular HGB Conc 32 gm/dL (32-36); Mean Corpuscular Hemoglobin 26 pg (26-34); Mean Corpuscular Volume 80 fL (80-100); RDW Coefficient of Variation % 14.6 % (11.5-15.5); Red Blood Count* 4.84 m/uL (4.00-5.20); White Blood Count* 12.69 K/uL (4.50-11.00)
[2025-04-24 00:28] LABS: Lymphocytes Absolute Auto 2.00 K/uL (0.90-2.90); Slide Review Reflex No
--- NOTE | 2025-04-24 00:52 | PM.OBPNL ---
Subjective Date Seen: 04/24/25 Narrative: Patient was admitted to Labor and Delivery for spontaneous labor. She is a 30 year old at 40 weeks gestation today. She is relaxing well in the tub in the bathroom since the birthing tub is not yet available. Wilver is supporting her. She is complaining of pressure in her rectum but does not have an urge to push yet. Specific Issues/Plans G 3 P 1011 : Wilver Daughter: Christy It is another girl! H&P completed 04/06/25 by Jennifer CHOWDHURY # History stillbirth at 20 weeks (measuring 16 weeks) on 04-03-22. Monosomy X/Fisher's syndrome and cystic hygroma. Considering NIPT testing. Insurance won't cover so not doing at this time. # Anxiety well managed with citalopram 20mg. # Family history of stickler syndrome and neurofibromatosis. Genetics referral placed; declined after order was placed # Asthma # BMI 31.5 A1C: 5.3 # O-. Partner O+ Rhogam given at 28 weeks # Hx low milk supply-enc hand expression at 36w # Failed 1 hr GT, 155 wanted to do 2 weeks of testing instead of 3 hr Over 2 week had 11% abnormals, 2 additional weeks of testing with overall 14% abnormal. No additional follow-up needed. # Hx of third degree (3b) (2022 delivery) Recommend perineal massage #Anemia at 34 weeks Hgb 10.6, ferritin 5.1 recommended iron supplement US- First tri 09/13/24-1. Single living intrauterine with sonographic gestational age 8 weeks 1 day and sonographic due date 04/24/2025. 2. Anterior subchorionic hemorrhage measures 4.0 x 1.8 x 1.9 cm. Anatomy US: 12/02/24-1. Concordance of clinical and sonographic dating. 2. Normal anatomic survey Flu: Covid: declines Mental Health: 03/02/25 Objective Exam: Objective: Constitutional: Alert and oriented x3, no distress, coping well Vital signs stable, see nurse documentation Abdomen: gravid, contractions palpate moderate with contractions and soft between Cervix: 6-7 cm/90%/0 station/vertex, head now well engaged with BBOW intermittent tones reassuring per nurse Vital Signs: Last Vital Signs Temp 98.6 F 04/23/25 22:19 Pulse 75 04/24/25 00:10 Resp 16 04/23/25 22:19 BP 119/72 04/24/25 00:10 Plan Plan: ASSESSMENT:?? 30 at 39 6/7 weeks gestation?? complicated by:??Anxiety, on citalopram, asthma, anemia, elevated BMI Labor type: Spontaneous, Active labor?? Category 1 FHR pattern.??? Labor complicated by: none?? GBS negative ?? PLAN:?? 1. Routine intrapartum cares as ordered. Continue with expectant management?? 2. Monitoring per policy, intermittent?? 3. Planning unmedicated . Desires water . Consent signed. Hep C negative. Candidate for analgesia of choice.?Will move to waterbirth room if available.?? 4. Patient encouraged to reposition and ambulate to promote physiologic labor and .?? 5. Nursing notified patient is on a SSRI 6. Anticipate ?
[2025-04-24] MEDS: LIDOCAINE 1 % PF 30 ML INJECTION (04:48)
[2025-04-24] MEDS: OXYTOCIN 30 unit/500 ML in NS 30 UNIT/500 ML BAG 300 UNIT IVPB (04:48)
--- NOTE | 2025-04-24 05:13 | PM.OBDSVD1 ---
DS: Providers Provider Date of admission: 04/23/25 22:59 Primary care physician: Not a Local Provider Admitting Clinician: Neda Pina CNM Attending Physician on discharge: Neda Pina CNM Exam Const: Vital Signs, click to edit/add: Vital Signs - 24 hr 04/23/25 22:19 04/24/25 00:10 04/24/25 01:45 Temperature 98.6 F 98.3 F Pulse Rate 102 H 75 Respiratory Rate 16 21 Blood Pressure 105/72 119/72 04/24/25 04:58 04/24/25 05:12 Temperature Pulse Rate 97 98 Respiratory Rate Blood Pressure 104/63 100/58 L OB - DS: Summary Hospital Course Hospital Course: The patient is a 30 year old G [] P [] at [] weeks gestation that was admitted to the Center on 04/23/25 for []. She had an [uncomplicated/complicated] [vaginal/] delivery. She delivered a viable [male/female] infant. She is [breast/bottle] feeding. the patient has done well. ENTERED IN ERROR Time Spent with Patient Time attestation: Total time spent providing and/or coordinating discharge services: Discharge Plan Discharge Date of Admission: 04/23/25 22:59 Attending Physician on Admission: Neda Pina Primary Care Provider: Provider,Not a Local Discharge Medications: No Action DHA 200 mg capsule PO citalopram 20 mg tablet 20 mg PO DAILY Qty: 90 3RF (DME) lancets Misc See Rx Instructions .MEDSUPPLY Qty: 200 3RF Rx Instructions: Test blood sugar 4 times daily. (DME) Test Strips Misc See Rx Instructions .MEDSUPPLY Qty: 200 3RF Rx Instructions: Test blood sugar 4 times daily. (DME) Blood Glucose Meter Misc See Rx Instructions .MEDSUPPLY Qty: 1 0RF Rx Instructions: As directed albuterol sulfate 90 mcg/actuation HFA aerosol inhaler 2 puff inhalation Q6H PRN (Reason: shortness of breath or wheezing) Qty: 6.7 1RF ferrous sulfate 325 mg (65 mg iron) tablet,delayed release (DR/EC) 325 mg PO Q OTHER DAY Qty: 60 1RF Follow Up Appointments: Provider,Not a Local [Primary Care Provider, Family Practice]
--- NOTE | 2025-04-24 05:15 | W.PM.OBVAGDE ---
OB Procedure Vag Delivery Mother Details Mother Details: The patient is a 30 year-old, 3, Para 1, admitted on 04/23/25 at 39w6d gestation. : 3 Para: 2 Weeks Gestation: 40 Admission Date: 04/23/25 Additional Details Amniotic Membrane Status: AROM Amniotic Membrane Rupture Date: 04/24/25 Amniotic Membrane Rupture Time: 04:10 Amniotic Membrane Fluid Description: Clear Analgesia/Anesthesia Type: None Waterbirth: Yes Pitcoin: Yes (for active management only) Intrapartal Events: None Labor Onset: 21:00 (04/23 2100) Complete: 04:16 (assumed complete with start of pushing) Pushin:16 Heart: heart tones during second stage were category 1. Delivery Details Delivery Date: 04/24/25 Delivery Time: 04:26 Route of delivery: Gender: Female Infant Viability: Alive; Heart Rate Present Position at Delivery: OA Delivery Details: Patient was admitted for spontaneous onset of active labor and progressed normally. AROM noted at 0410 with clear fluid. Patient was assumed complete at 0416 when pushing at 0416. of a viable female at 0426 in reclined sitting position in the tub. Vertex delivered OA. No nuchal cord or shoulder dystocia. Body delivered easily and without incident. Infant passed to mothers abdomen with a vigorous cry. Cord was clamped and cut at > 5 minutes. APGARS were 8 at one minute and 9 at five minutes respectively. Mouth was bulb suctioned. Intact placenta with a 3 vessel cord delivered spontaneously at 0436. Fundus firm. 2nd degree identified and repaired in typical fashion by Valerie NAJERA and chino Norwood CNM. Bilateral vaginal lacerations repaired by Jennifer prior to getting called to another delivery. QBL 275 cc. Mother and baby stable; mother plans to breastfeed. weight pending.? Valerie NAJERA 1 Minute Interval Total Score: 8 5 Minute Interval Total Score: 9 Additional Details Shoulder Dystocia: No Placenta Delivery Time: 04:36 Placental Delivery Description: Spontaneous Delivery repair: Vicryl Procedure Done: Global Laceration: Vaginal - 2nd Degree (Bilateral and 2nd degree midline perineal all repaired) Episiotomy Description: None Bakri Used: No Sponge/Need Count Correct: Yes Cord Vessel Description: 3 Vessels Event Summary Status: Mother and infant were stable after delivery. Jennifer Mayes APRN, CNM, was present for visit and have reviewed and agree with documentation by the Certified Nurse Midwifery Student.? Disposition: floor
[2025-04-24] MEDS: ACETAMINOPHEN 500 MG TABLET 1000 MG PO ×2 (15:26→21:48)
[2025-04-25 02:42] VITALS: BP 118/81; PULSE 98; RESP 16; TEMP 36.9; O2SAT 97
[2025-04-25] MEDS: ACETAMINOPHEN 500 MG TABLET 1000 MG PO (07:39)
[2025-04-25 07:45] VITALS: BP 112/70; PULSE 72; RESP 16; TEMP 36.8; O2SAT 97
[2025-04-25] MEDS: DOCUSATE SODIUM 100 MG CAPSULE PO (08:34)
[2025-04-25] MEDS: BENZOCAINE/MENTHOL SPRAY 85 GM AEROSOL 1 APPLIC TOPICAL (08:35)
[2025-04-25 09:10] LABS: Hemoglobin* 10.5 gm/dL (12.0-16.0)
--- NOTE | 2025-04-25 12:49 | PM.OBDSVD1 ---
DS: Providers Provider Date Seen: 04/25/25 Date of admission: 04/23/25 22:59 Primary care physician: Not a Local Provider Admitting Clinician: Neda Pina CNM Attending Physician on discharge: Messi Peguero CNM Date of Discharge: 04/25/25 DS: Diagnosis Discharge Diagnosis (1) care and examination of lactating mother: Status: Acute Exam Narrative: Exam Narrative: GENERAL APPEARANCE:? normal affect, alert, no distress MOOD:? appropriate CHEST:? clear to auscultation HEART:? regular rate and rhythm ABDOMEN:? soft, non-tender the uterine fundus is firm At Umbilicus, Midline and is appropriate for the stage of recovery. PERINEUM:? mild edema of the perineum, there is a Perineal Laceration,? 2nd degree that is healing well. EXTREMITIES:? normal and trace edema Const: Vital Signs, click to edit/add: Vital Signs - 24 hr 04/24/25 18:00 04/24/25 22:06 04/25/25 02:42 Temperature 97.8 F 97.9 F 98.4 F Pulse Rate [Pulse Oximeter] 104 H 97 98 Respiratory Rate 16 20 16 Blood Pressure [Le ft Arm] 111/72 105/70 118/81 Pulse Oximetry 97 97 97 Oxygen Delivery Me thod Room Air Room Air Room Air 04/25/25 07:45 Temperature 98.2 F Pulse Rate [Pulse Oximeter] 72 Respiratory Rate 16 Blood Pressure [Le ft Arm] 112/70 Pulse Oximetry 97 Oxygen Delivery Me thod Room Air Documenting provider has reviewed patient's vital signs: yes OB - DS: Summary Hospital Course Hospital Course: Kandi is a 30 y.o. who was admitted to [facility] for labor. ?She had an uncomplicated NVD.?The patient feels well. ?The pain is well controlled with current medications. ?She has no new complaints. ?She is breast feeding and reports things are going well.? the patient has done well.? Vitals have been stable.? She has remained afebrile.? Has a good appetite, is tolerating a general diet. ?She is voiding without difficulty.? She is passing gas and has not had a bowel movement.? She is ambulating and denies any dizziness.? Has Small amount of rubra lochia. ?She is planning condoms for prevention. Peripartum Data Laceration description: Perineal - 2nd Degree complications: none [place] Gender: Female Infant Discharge Plan: Home Time Spent with Patient Time attestation: Total time spent providing and/or coordinating discharge services: Discharge Plan Discharge Disposition: Home, Self-Care Date of Admission: 04/23/25 22:59 Attending Provider on Discharge: Messi Peguero Primary Care Provider: Provider,Not a Local Condition: Stable Anticipated Discharge Date/Time: 04/25/25 16:00 Discharge Medications: New acetaminophen 500 mg Tablet 1,000 mg PO Q6H PRNQty: 0 0RF docusate sodium 100 mg Capsule 100 mg PO DAILY Qty: 90 0RF ibuprofen 600 mg Tablet 600 mg PO Q6H PRNQty: 60 0RF Continued DHA 200 mg capsule PO citalopram 20 mg tablet 20 mg PO DAILY Qty: 90 3RF albuterol sulfate 90 mcg/actuation HFA aerosol inhaler 2 puff inhalation Q6H PRN (Reason: shortness of breath or wheezing) Qty: 6.7 1RF ferrous sulfate 325 mg (65 mg iron) tablet,delayed release (DR/EC) 325 mg PO Q OTHER DAY Qty: 60 1RF Discontinued (DME) lancets Misc See Rx Instructions .MEDSUPPLY Qty: 200 3RF Rx Instructions: Test blood sugar 4 times daily. (DME) Test Strips Misc See Rx Instructions .MEDSUPPLY Qty: 200 3RF Rx Instructions: Test blood sugar 4 times daily. (DME) Blood Glucose Meter Misc See Rx Instructions .MEDSUPPLY Qty: 1 0RF Rx Instructions: As directed Discharge Orders: Discharge Order (Routine); Ordered 04/25/25 Ordered By: Messi Peguero Patient Education: OB Vaginal/Breast Feeding Additional Instructions: Discharge instructions were reviewed with the patient including signs and symptoms of infection and home going medications Nothing vaginally for 6 weeks: no tampons or intercourse Off Work or School for 6 weeks 2-week visit: discuss infant feeding concerns, review control options and screen for anxiety/depression. 6-week visit for an annual exam. consultation services are available to all mothers and babies for the first year after delivery.? To make an appointment, please call [phone]. Activity Level: Activity as Tolerated Discharge Diet: Regular Follow Up Appointments: Provider,Not a Local [Primary Care Provider, Family Practice] [facility] [Provider Group] Forms: Patient Belongings, MyHealth Info Instructions
== END 2025-04-25 13:48 | disposition home or self-care (01) | DRG 807 ==
LOC: OB OUT 23:00 → OB 23:00
PROVIDERS: Admitting Provider Midwife; Visit Provider Midwife
DX: O99.344 Other mental disorders complicating childbirth (principal); Z37.0 Single live birth; F41.9 Anxiety disorder, unspecified; O70.1 Second degree perineal laceration during delivery; O26.893 Other specified pregnancy related conditions, third trimester; Z67.41 Type O blood, Rh negative; Z82.79 Family history of other congenital malformations, deformations and chromosomal abnormalities; O99.02 Anemia complicating childbirth; D64.9 Anemia, unspecified; Z3A.39 39 weeks gestation of pregnancy
CPT/HCPCS: 36415; 85018; 85025; 86592; 86850; 86900; 86901; A9270; J2003